=== PATIENT | female | born 1960 | race Caucasian/White ===

== ENCOUNTER 2019-06-06 12:42 | Emergency (ER) | payer OTHER ==
[~2019-06-06] VITALS: Ht 162.6 cm; Wt 63.0 kg
[2019-06-06] MEDS ORDERED: SYNTHROID50 MCG PO (13:03)
[2019-06-06] MEDS ORDERED: COZAAR50 MG (13:03)
[2019-06-06] MEDS ORDERED: ZOCOR20 MG PO (13:04)
== END 2019-06-06 19:20 | disposition home or self-care (01) ==
LOC: ER 12:42
DX: R51 Headache (principal)